=== PATIENT | male | born 1985 | race Hispanic/Latino ===

== ENCOUNTER 2024-08-21 23:39 | Emergency (ER) | payer SELFPAY ==
[~2024-08-21] VITALS: Ht 177.8 cm; Wt 104.3 kg
[~2024-08-21 23:39] MED LIST: IOHEXOL 350 MG/ML 100ML INFUS..BTL IV ONE
--- NOTE | 2024-08-21 23:42 | NUR ---
UA CUP PROVIDED
[2024-08-22] MEDS: 0.9%NACL 1000ML 3,129 ML IV ONE (00:06)
[2024-08-22] MEDS: ketOROlac 15MG/ML VIAL (15MG/ML) IV ONE (00:06)
[2024-08-22 00:21] LABS: CREATININE 1.2 mg/dL (0.5-1.3); POTASSIUM 3.6 mmol/L (3.5-5.1)
[2024-08-22 00:22] LABS: APPEARANCE,URINE CLEAR (CLEAR); BILIRUBIN,URINE NEGATIVE (NEGATIVE); COLOR,URINE LIGHT-YELLOW (YELLOW); GLUCOSE, URINE (UA) NEGATIVE (NEGATIVE); KETONES,URINE NEGATIVE (NEGATIVE); LEUKOCYTE ESTERASE ,URINE NEGATIVE Leu/uL (NEGATIVE); NITRATE,URINE NEGATIVE (NEGATIVE); OCCULT BLOOD,URINE NEGATIVE (NEGATIVE); PROTEIN,URINE NEGATIVE (NEGATIVE); UROBILINOGEN,URINE 0.2 mg/dL (0.2-1.0)
[2024-08-22 00:25] LABS: ALBUMIN 3.1 g/dL (3.5-5.0); BILIRUBIN,DIRECT 0.1 mg/dL (0.0-0.3); BILIRUBIN,TOTAL 0.5 mg/dL (0.2-1.0); TOTAL PROTEIN, SERUM 8.1 g/dL (6.0-8.3)
[2024-08-22 00:29] LABS: ADD UA MICROSCOPIC NO
[2024-08-22] MEDS: ketOROlac 15MG/ML VIAL (15MG/ML) ONE (00:31)
[2024-08-22 00:37] LABS: BASOPHILS # (AUTO) 0.04 K/uL (0.00-0.20); BASOPHILS % (AUTO) 0.2 % (0.0-5.0); EOSINOPHILS # (AUTO) 0.11 K/uL (0.00-0.70); EOSINOPHILS % (AUTO) 0.7 % (0.0-8.0); HEMATOCRIT 39.1 % (42-54); LYMPHOCYTES # (AUTO) 4.2 K/uL (1.0-4.8); MEAN CORPUSCULAR HEMOGLOBIN 30.3 pg (27.0-33.0); MEAN CORPUSCULAR VOLUME 91.8 fL (79-99); MONOCYTES # (AUTO) 1.2 K/uL (0.1-1.0); MONOCYTES % (AUTO) 6.9 % (3.0-13.0); NEUTROPHILS # (AUTO) 11.2 K/uL (1.8-7.7); NEUTROPHILS % (AUTO) 66.6 % (40.0-77.0); PLATELET COUNT (AUTO) 387 K/uL (130-400); RED BLOOD CELL COUNT(AUTO) 4.26 MIL/uL (4.50-6.20); RED CELL DISTRIBUTION WIDTH 12.9 % (11.0-15.5); WHITE BLOOD COUNT (AUTO) 16.8 K/uL (4.8-10.8)
[2024-08-22] MEDS ORDERED: IOHEXOL 350 MG/ML 100ML INFUS..BTL IV ONE (00:40)
[2024-08-22] MEDS: hydroMORPHone 0.5 MG SYG (0.5MG/0.5ML) IVP ONE (00:43)
--- NOTE | 2024-08-22 01:15 | HMCIMG ---
CT ABDOMEN/PELVIS W/CONTRAST HISTORY: Abdominal pain COMPARISON: None TECHNIQUE: Multiple sequential axial images of the abdomen and pelvis were obtained from the dome of the diaphragm through symphysis pubis. Patient was given 100 cc of Omnipaque through intravenous route. Oral contrast was not given. FINDINGS: No pleural effusion is seen bilaterally. There is no evidence of parenchymal disease or pulmonary nodule of the visualized lower lungs. Degenerative changes of the thoracolumbar spine are present. The heart is not enlarged. Liver measures 19 cm. The liver, spleen, adrenal glands and pancreas are unremarkable. There is no evidence of hydronephrosis bilaterally. No evidence of renal stone is seen. Fecal material is seen in the colon. There are normal size retroperitoneal and mesenteric lymph nodes. No ascites is seen. Extensive mesenteric fat stranding with phlegmon collection is seen in the right lower abdomen suspicious for acute appendicitis in the proper clinical setting. Minimal small bowel dilatation is seen fluid-filled. Pelvic sidewalls are symmetric bilaterally. Bladder is well distended without wall thickening. IMPRESSION: 1. Findings suspicious for acute appendicitis with phlegmon collection in the right lower abdomen. Early nonorganized abscess cannot be excluded. CT was performed with one or more following dose reduction techniques: automated exposure control, adjustment of the mA and kv according to patient's size, or use of a iterative reconstruction technique.
--- NOTE | 2024-08-22 02:00 | ERN ---
General Chief Complaint: Sepsis Stated Complaint: FEVER, BACK PAIN, POST SX Time Seen by MD: 23:42 History of Present Illness Initial Comments 38-year-old male, otherwise healthy, presents for right-sided abdominal pain and fever. Patient had an appendectomy laparoscopic on 08/12/[address] [facility]. He reports that since then he has continued with some right-sided pain in the lower abdomen and right flank. It has been worsening. Today developed a fever. He denies any vomiting, he was p.o. tolerant. No diarrhea urinary symptoms. Denies any other medical or surgical history. Allergies: Coded Allergies: No Known Allergies (Unverified Allergy, Unknown, 08/21/24) Past Medical History Past Medical History: No Pertinent History Past Surgical History: Appendectomy ROS Dictation CONSTITUTIONAL: Fever chills HEAD/FACE: No signs of trauma. EENT: No eye pain, no blurred vision, no tearing, no double vision, no ear pa in, no ear discharge, no nose pain, no nasal congestion, no throat pain, no throat swelling, no mouth pain. RESPIRATORY: No cough, no orthopnea, no SOB, no stridor, no wheezing. CARDIOVASCULAR: No chest pain, no edema, no palpitations, no syncope. GASTROINTESTINAL/ABDOMINAL: Right-sided abdominal pain GENITOURINARY: No abnormal discharge, no dysuria, no frequent urination, no hematuria. No complaints of pain in the genitals. MUSCULOSKELETAL: No back pain, no gout, no joint pain, no joint swelling, no muscle pain, no muscle stiffness, no neck pain. INTEGUMENTARY: No change in color, no change in hair/nails, no dryness, no lesion, no lumps, no rash. NEUROLOGICAL/PSYCH: No anxiety, not depressed, no emotional problem, no headache, no numbness, no pre-existing deficit, no history of seizures, no tremors, no weakness. HEMATOLOGIC/LYMPHATIC: Not anemic, no history of blood clots, no apparent bleeding, no bruising, glands not swollen. All Systems Negative, Except as Noted. Physical Exam Physical Exam Dictation VITAL SIGNS: Reviewed. GENERAL APPEARANCE: Alert, oriented x3, mild distress due to pain HEAD AND FACE: Non-traumatic. EYES: PERRL, pink conjunctivas, eyelid no trauma, anterior chamber clear. EARS: Pinnas intact and no signs of trauma or erythema. Ear canals clear and no discharge. TMs no erythema. NOSE: No discharge, no bleeding. OROPHARYNX: Mouth normal, teeth no caries, tongue pink. Pharynx clear, no erythema. Tonsils no exudates, no abscesses noted. Mucous membrane moist. NECK: Supple, non-tender, no thyromegaly, no masses, no JVD, no bruits. BREAST: Deferred. CHEST: No tenderness, no crepitus, no paradoxical movement, no retractions. LUNGS: Clear, well-ventilated, symmetric, no rales, no wheezing, no rhonchi, no stridor, good breath sounds bilaterally. HEART: Regular rate, regular rhythm, no murmur, no gallops. VASCULAR: No peripheral edema. ABDOMEN: Tender right-sided abdomen, no distention, well healing laparoscopic wounds GENITAL: Deferred. NEUROLOGICAL: Normal speech, gross motor function intact, gross sensory function intact. MUSCULOSKELETAL: Neck nontender, full range of motion, back nontender, full range of motion. EXTREMITIES: Nontender, full range of motion. SKIN: Color pink, dry, no turgor, no rash, no lacerations, no abrasions, no contusions. LYMPHATICS: Deferred. Results Laboratory and Microbiology Lab and Micro Result Laboratory Tests Test 08/21/24 23:53 White Blood Count 16.8 K/uL (4.8-10.8) H Red Blood Count 4.26 MIL/uL (4.50-6.20) L Hemoglobin 12.9 g/dL (14.0-18.0) L Hematocrit 39.1 % (42-54) L Mean Corpuscular Volume 91.8 fL (79-99) Mean Corpuscular Hemoglobin 30.3 pg (27.0-33.0) Mean Corpuscular Hemoglobin Concent 33.0 g/dL (32.0-36.0) Red Cell Distribution Width 12.9 % (11.0-15.5) Platelet Count 387 K/uL (130-400) Mean Platelet Volume 9.2 fL (7.5-10.5) Immature Granulocyte % (Auto) 0.6 % (0-1) Neutrophils (%) (Auto) 66.6 % (40.0-77.0) Lymphocytes (%) (Auto) 25.0 % (21.0-51.0) Monocytes (%) (Auto) 6.9 % (3.0-13.0) Eosinophils (%) (Auto) 0.7 % (0.0-8.0) Basophils (%) (Auto) 0.2 % (0.0-5.0) Neutrophils # (Auto) 11.2 K/uL (1.8-7.7) H Lymphocytes # (Auto) 4.2 K/uL (1.0-4.8) Monocytes # (Auto) 1.2 K/uL (0.1-1.0) H Eosinophils # (Auto) 0.11 K/uL (0.00-0.70) Basophils # (Auto) 0.04 K/uL (0.00-0.20) Absolute Immature Granulocyte (auto 0.10 K/uL (0-1) Nucleated Red Blood Cells 0.0 % (0.0-0.19) Urine Color LIGHT-YELLOW (YELLOW) Urine Appearance CLEAR (CLEAR) Urine pH 6.0 (5.0-8.0) Urine Specific [place] 1.016 (1.001-1.031) Urine Protein NEGATIVE mg/dL (NEGATIVE) Urine Glucose (UA) NEGATIVE mg/dL (NEGATIVE) Urine Ketones NEGATIVE mg/dL (NEGATIVE) Urine Occult Blood NEGATIVE (NEGATIVE) Urine Nitrate NEGATIVE (NEGATIVE) Urine Bilirubin NEGATIVE mg/dL (NEGATIVE) Urine Urobilinogen 0.2 mg/dL (0.2-1.0) Urine Leukocyte Esterase NEGATIVE Jaime/uL Sodium Level 137 mmol/L (136-145) Potassium Level 3.6 mmol/L (3.5-5.1) Chloride Level 101 mmol/L (101-111) Carbon Dioxide Level 30 mmol/L (21-32) Blood Urea Nitrogen 19 mg/dL (7-18) H Creatinine 1.2 mg/dL (0.5-1.3) Glomerular Filtration Rate Calc 78 mL/min (>90) Random Glucose 112 mg/dL (70-105) H Lactic Acid Level 1.5 mmol/L (0.8-2.5) Total Calcium 9.1 mg/dL (8.5-10.1) Total Bilirubin 0.5 mg/dL (0.2-1.0) Direct Bilirubin 0.1 mg/dL (0.0-0.3) Aspartate Amino Transf (AST/SGOT) 16 U/L (10-37) Alanine Aminotransferase (ALT/SGPT) 52 U/L (12-78) Alkaline Phosphatase 108 U/L (50-136) Total Creatine Kinase 201 U/L (21-232) Troponin I High Sensitivity 5 ng/L (4-75) Total Protein 8.1 g/dL (6.0-8.3) Albumin 3.1 g/dL (3.5-5.0) L Lipase 48 U/L (16-77) Procalcitonin 0.24 ng/mL (0.05-0.5) MDM CC: Right-sided abdominal pain and fevers status post appendectomy about a week ago. Historian: Patient Comorbidities: Denies Limitations by social determinants of health: Differential diagnosis: Postop complication, sepsis, surgical pathology, urinary infection, pyelonephritis, other. Vital signs: Initially febrile 100.6 F, tachycardic 129, tachypneic 24. Blood pressure stable. Oxygen saturation stable. Clinical exam patient has tenderness to the right lower quadrant more than the left, no distention, he is nontoxic in appearance but he does not meet sepsis criteria. Sepsis protocol initiated including IV fluids, labs including lactic acid and blood culture. Labs ( independently ordered and interpreted by me ): Leukocytosis 16.8k. No shift. No bands. No anemia. BNP stable, lactic acid normal. Liver function normal. Troponin normal. Lipase normal. Procalcitonin 0.24. Urinalysis unremarkable. CT scan abdomen and pelvis with contrast ) independently interpreted by me ): Inflammation fat stranding in the right lower quadrant, likely an abscess. Treatment in ER: IV fluids normal saline per sepsis protocol, 15 mg IV Toradol, 0.5 mg IV Dilaudid, Zosyn. Sepsis focused re-evaluation: Stable vital signs, stable perfusion after the fluid bolus and IV antibiotics. Likely a postoperative surgical complication. Surgery was performed at [facility]. Will transfer for continuation of care. Consultation: Dr Dykes @ [facility] [place] REASON: R sided abd pain, fever, recent appendectomy ORDERING PHYSICIAN: BERTRAND HERNANDES DO PROCEDURE: ABD PEL W - CT ABDOMEN/PELVIS W/CONTRAST CT ABDOMEN/PELVIS W/CONTRAST HISTORY: Abdominal pain COMPARISON: None TECHNIQUE: Multiple sequential axial images of the abdomen and pelvis were obtained from the dome of the diaphragm through symphysis pubis. Patient was given 100 cc of Omnipaque through intravenous route. Oral contrast was not given. FINDINGS: No pleural effusion is seen bilaterally. There is no evidence of parenchymal disease or pulmonary nodule of the visualized lower lungs. Degenerative changes of the thoracolumbar spine are present. The heart is not enlarged. Liver measures 19 cm. The liver, spleen, adrenal glands and pancreas are unremarkable. There is no evidence of hydronephrosis bilaterally. No evidence of renal stone is seen. Fecal material is seen in the colon. There are normal size retroperitoneal and mesenteric lymph nodes. No ascites is seen. Extensive mesenteric fat stranding with phlegmon collection is seen in the right lower abdomen suspicious for acute appendicitis in the proper clinical setting. Minimal small bowel dilatation is seen fluid-filled. Pelvic sidewalls are symmetric bilaterally. Bladder is well distended without wall thickening. IMPRESSION: 1. Findings suspicious for acute appendicitis with phlegmon collection in the right lower abdomen. Early nonorganized abscess cannot be excluded. ED Course Orders Procedure Category Date Status Time Cbc With Differential LAB 08/21/24 Complete 23:49 Blood Cult ARASELI 08/21/24 In Process 23:49 Urinalysis Profile LAB 08/21/24 Complete 23:49 Culture Urine ARASELI 08/21/24 In Process 23:49 0.9%Nacl 1000ml (Ns PHA 08/22/24 In Process 1000ml) 00:00 Creatine Kinase, Total LAB 08/21/24 Complete 23:49 Troponin I High LAB 08/21/24 Complete Sensitivity 23:49 Lactic Acid LAB 08/21/24 Complete 23:49 Basic Metabolic Panel LAB 08/21/24 Complete 23:49 Hepatic Function Panel LAB 08/21/24 Complete 23:49 Lipase LAB 08/21/24 Complete 23:49 Procalcitonin LAB 08/21/24 Complete 23:49 Ct Abdomen/Pelvis CT 08/21/24 Resulted W/Contrast 23:49 Ketorolac PHA 08/22/24 Complete Tromethamine 15mg/Ml 00:00 Hydromorphone 0.5mg PHA 08/22/24 Complete Syg (Dilaudid 0.5mg 00:00 Ketorolac PHA 08/22/24 Complete Tromethamine 15mg/Ml 00:04 Iohexol (Omnipaque) PHA 08/22/24 Complete 00:40 Zosyn 3.375gm+Ns 50ml PHA 08/22/24 Complete (Zosyn 3.375gm+Ns 02:00 Hydromorphone 0.5mg PHA 08/22/24 In Process Syg (Dilaudid 0.5mg 02:00 Current Medications Medications (Trade) Dose Ordered Sig/Ru Route PRN Reason Start Time Stop Time Status Last Admin Dose Admin Hydromorphone HCl (DiLAUDid 0.5MG INJ) 0.2 mg Q4H PRN IVP SEVERE PAIN (7-10) 08/22/24 02:00 08/27/24 01:59 08/22/24 02:30 Hydromorphone HCl (DiLAUDid 0.5MG INJ) 0.5 mg ONCE ONCE IVP 08/22/24 00:00 08/22/24 00:14 DC 08/22/24 00:43 Iohexol (Omnipaque) 35,000 mg STK-MED ONCE IV 08/22/24 00:40 08/22/24 00:41 DC Ketorolac Tromethamine (toRADol) 15 mg ONCE ONCE IV 08/22/24 00:00 08/22/24 00:04 DC 08/22/24 00:06 Ketorolac Tromethamine (toRADol) 15 mg STK-MED ONCE .ROUTE 08/22/24 00:04 08/22/24 00:10 DC Piperacillin Sod/ Tazobactam Sod (Zosyn 3.375gm+NS 50ml) 3.375 gm ONCE ONCE IV 08/22/24 02:00 08/22/24 02:01 DC 08/22/24 02:29 Sodium Chloride 3,129 ml @ 1,043 mls/hr ONCE ONCE IV 08/22/24 00:00 08/22/24 02:59 08/22/24 00:06 Vital Signs Date Time Temp Pulse Resp B/P (MAP) Pulse Ox O2 Delivery O2 Flow Rate FiO2 08/22/24 02:48 99.0 91 16 131/74 97 Room Air* 0 21 08/22/24 01:48 99.7 96 15 122/62 97 Room Air* 0 21 08/21/24 23:52 100.6 116 15 148/83 98 Room Air* 0 08/21/24 23:42 100.6 129 24 143/96 99 Room Air DX & DISP Disposition: [place] [place] Departure Impression: Primary Impression: Sepsis Additional Impressions: Post surgical complication, Abdominal abscess Critical Time: 30 minutes (Critical Care Procedure NoteAuthorized and Performed by: meTotal critical care time: Approximately 36 minutesDue to a high probability of clinically significant, life threatening deterioration, the patient required my highest level of preparedness to intervene emergently and I personally spent this critical care time directly and personally managing the patient. This critical care time included obtaining a history; examining the patient; pulse oximetry; ordering and review of studies; arranging urgent treatment with development of a management plan; evaluation of patient's response to treatment; frequent reassessment; and, discussions with other providers.This critical care time was performed to assess and manage the high probability of imminent, life-threatening deterioration that could result in multi-organ failure. It was exclusive of separately billable procedures and treating other patients and teaching time.Please see MDM section and the rest of the note for further information on patient assessment and treatment.) Condition: Stable Referrals: SELF,REFERRAL (PCP) BERTRAND HERNANDES DO Aug 22, 2024 02:00
--- NOTE | 2024-08-22 02:01 | NUR ---
SPOKE WITH [place] [facility]. TRANSFER REQUEST INITIATED AT THIS TIME.
[2024-08-22] MEDS: ZOSYN 3.375GM +NS 50ML IV ONE (02:29)
[2024-08-22] MEDS: hydroMORPHone 0.5 MG SYG (0.5MG/0.5ML) IVP PRN (02:30)
--- NOTE | 2024-08-22 03:16 | NUR ---
[facility] CONTACTED FOR TRANSFER TO [facility] [place] [facility]
--- NOTE | 2024-08-22 03:59 | NUR ---
[facility] GIVEN TO JESUS ALBERTO MARROQUIN. EMS PICKED UP PT AT THIS TIME
[2024-08-22 04:00] VITALS: BP 130/76; PULSE 86; RESP 16; TEMP 98.9; O2SAT 97
== END 2024-08-22 03:59 | disposition short-term general hospital (02) ==
LOC: EDH 23:39
DX: A41.9 Sepsis, unspecified organism (principal); L02.211 Cutaneous abscess of abdominal wall; Z90.49 Acquired absence of other specified parts of digestive tract
CPT/HCPCS: 99291; 74177; 82550; 80076; 84484; 80048; 83690; 85025; 87040 ×2; 87086; 83605; 81003; 36415; 84145; 96365; 96375; 96361; 96376; Q9967; J1885; J1171 ×3; J7030; J2543; 99285